=== PATIENT | female | born 1990 | race Caucasian/White ===

== ENCOUNTER → 2016-10-10 | Outpatient (CLI) | payer BC ==
[~2016-10-10] MED LIST: AMPH20TA2 PO; AMPH30CA3 PO; BUPR75TA20 PO; CIPR-255 PO; OXYC-57 PO
[2016-10-10 18:22] LABS: BASO % 0.1 %; BASO ABS # 0.01 K/uL (0-0.2); COMPLETE YES; EOS % 1.2 %; HEMATOCRIT 43.8 % (37-47); IG% 0.1 %; LYMPH % 27.5 %; LYMPH ABS # 2.04 K/uL (1.2-3.4); MEAN CORPUSCULAR HEMOGLOBIN 31.3 pg (25-34); MEAN CORPUSCULAR HGB CONC 33.3 g/dl (32-36); MEAN PLATELET VOLUME 10.4 fL (7.4-10.4); MONO % 5.7 %; NEUT % 65.4 %; PLATELET COUNT 244 K/uL (130-400); RED BLOOD COUNT 4.66 M/uL (4.2-5.4); WHITE BLOOD COUNT 7.41 K/uL (4.8-10.8)
[2016-10-10 18:35] LABS: URINE APPEARANCE CLEAR (CLEAR); URINE BILIRUBIN NEG (NEG); URINE COLOR DK YELLOW; URINE EPITHELIAL CELL AUTO >30 /lpf (0-5); URINE NITRITE NEG (NEG); URINE PH 5.5 (4.5-7.5); URINE SPECIFIC GRAVITY 1.021 (1.000-1.030); UROBILINOGEN NEG (NEG)
[2016-10-10 18:35] LABS: BLOOD UREA NITROGEN 10 mg/dl (7-18); BUN/CREATININE RATIO 10.7 (10-20); CARBON DIOXIDE 27 mmol/L (21-32); CHLORIDE 108 mmol/L (98-107); CREATININE 0.93 mg/dl (0.60-1.20); GLUCOSE 88 mg/dl (70-99); POTASSIUM 3.8 mmol/L (3.5-5.1); SODIUM 143 mmol/L (136-145)
[2016-10-10 18:42] LABS: MANUAL MICROSCOPIC REQUIRED? NO; REVIEW REQ? YES
[2016-10-10 18:58] LABS: URINE MUCUS PRESENT (NONE PRSENT)
== END | disposition home or self-care (01) ==
LOC: C.LABMFLN 09:06
PROVIDERS: ATTEND Urology
DX: N20.0 Calculus of kidney (principal)

== ENCOUNTER → 2016-10-19 | Day surgery (SDC) | payer BC ==
[2016-10-16 07:57] VITALS: Ht 154.9 cm; Wt 68.2 kg
[~2016-10-19] VITALS: Ht 154.9 cm; Wt 68.2 kg
[~2016-10-19] MED LIST changes: +ACETAMINOPHEN 325 MG TAB PO PRN; -AMPH30CA3 PO; +ATROPINE SULFATE 0.1 MG/ML 5ML SYR IV PRN; -BUPR75TA20 PO; +EpHEDrine SULFATE INJ 50 MG/ML AMP IV PRN; +FENTANYL CITRATE INJ 50 MCG/1 ML 2 ML VIAL IV PRN; +FENTANYL CITRATE INJ 50 MCG/1 ML 2 ML VIAL ONE; +HYDROCODONE/ACETAMOPHEN 5/325MG TAB PO PRN; +HYDROmorphone INJ 1 MG/ML SYR IV PRN; +LIDOCAINE HCL 2% 2 ML VIAL (20MG/ML) ONE; +MIDAZOLAM HCL 1 MG/ML 2ML VIAL ONE; +ONDANSETRON INJ 2 MG/ML 2 ML VIAL IV PRN; +ONDANSETRON INJ 2 MG/ML 2 ML VIAL ONE; +PROPOFOL IV EMULSION 10 MG/ML 20 ML VIAL IV ONE; +SODIUM CHLORIDE 0.9% 1000ML 1,000 ML IV SCH
[2016-10-19] MEDS: LACTATED RINGER'S 1000ML 1,000 ML IV SCH ×2 (07:58→10:50)
[2016-10-19] MEDS: CIPROFLOXACIN 400MG / D5W IV SCH (08:49)
--- NOTE | 2016-10-19 08:50 | History & Physical Bridge Note ---
H&P Re-Evaluation Bridge Note: I have examined the patient, reviewed the History & Physical and in the interval since the performance of the History & Physical I have noted the following changes of clinical significance: No changes noted KUB this AM has a significant amount of bowel gas making it difficult to definitively identify a renal stone. We will plan for a look under fluoroscopy prior to inducing anesthesia.
--- NOTE | 2016-10-19 10:20 | [facility] Post Operative Brief Note ---
Immediate Operative Summary Operative Date October 19, 2016. Pre-Operative Diagnosis Right renal calculi Post-Operative Diagnosis Same Procedure(s) Performed Right Extracorporeal Shock Wave Lithotripsy - Renal Surgeon Dr. Thomas Dynamometer Tester Engine Surgeon(s) None Estimated Blood Loss 0 mL Findings R renal stone- significant bowel gas made it somewhat hard to identify, but appeared to fragment well Specimens None Drains none Anesthesia gen Complication(s) None Disposition Recovery Room / PACU (stable)
--- NOTE | 2016-10-19 10:21 | Discharge Instructions-SurgCtr ---
Discharge Instructions Date of Service October 19, 2016. Visit Reason for Visit: Stones Discharge Discharge Diagnosis / Problem: stones Discharge Goals Goal(s): Decrease discomfort, Improve function, Increase independence, Improve disease control Medications Stopped Medications Name(s): No recent blood thinners Activity Recommendations Activity Limitations: resume your previous activity Lifting Limitations: none Exercise/Sports Limitations: none May Resume Sexual Activity: when tolerated Shower/Bathe: no limitations Driving or Machine Use: resume 1 day after discharge Anesthesia . Post Anesthesia Instructions: If you have had General Anesthesia or IV Sedation: * Do not drive today. * Resume driving when surgeon permits. * Do not make important decisions or sign legal documents today. * Call surgeon for: 1. Temperature elevations greater than 101 degrees F. 2. Uncontrollable pain. 3. Excessive bleeding. 4. Persistent nausea and vomiting. 5. Medication intolerance (nausea, vomiting or rash). * For nausea and vomiting use only clear liquids such as: tea, soda, bouillon until nausea subsides, then gradually increase diet as tolerated. * If you have any concerns or questions, call your surgeon's office. If physician is unavailable and it is an emergency, call 911 or go to the nearest emergency room. . Instructions / Follow-Up Instructions / Follow-Up Please keep your previously scheduled follow up appointment. Diet Recommendations Home Diet: no limitations, resume previous diet Procedures Procedures Performed: Right Extracorporeal Shock Wave Lithotripsy - Renal Pending Studies Studies pending at discharge: no Medical Emergencies . Who to Call and When: Medical Emergencies: If at any time you feel your situation is an emergency, please call 911 immediately. . Non-Emergent Contact Non-Emergency issues call your: Urologist Call Non-Emergent contact if: you have a fever, temperature is above 101.5, your pain is not controlled, your pain is worsening . . "Provider Documentation" section prepared by Wilmer Jeffery. .
--- NOTE | 2016-10-19 10:57 | Anesthesia Progress Nt - [facility] ---
Anesthesia Post Op Note Date & Time October 19, 2016 at 10:57 Vital Signs Pain Intensity: 0 Vital Signs Past 12 Hours Date Time Temp Pulse Resp B/P Pulse Ox O2 Delivery O2 Flow Rate FiO2 10/19/16 10:31 36.1 52 20 98/58 100 Mask 6 10/19/16 07:40 36.4 65 16 115/74 98 Room Air Notes Mental Status: alert / awake / arousable, participated in evaluation Pt Amnestic to Procedure: Yes Nausea / Vomiting: adequately controlled Pain: adequately controlled Airway Patency, RR, SpO2: stable & adequate BP & HR: stable & adequate Hydration State: stable & adequate Anesthetic Complications: no major complications apparent
[2016-10-19 11:21] VITALS: TEMP 36.2
[2016-10-19 11:41] VITALS: BP 125/73; PULSE 56; O2SAT 100
--- NOTE | 2016-10-19 12:31 | OPERATIVE REPORT ---
DATE OF OPERATION: 10/19/2016 PREOPERATIVE DIAGNOSIS: Right renal calculus. POSTOPERATIVE DIAGNOSIS: Right renal calculus. PROCEDURE PERFORMED: Right extracorporeal shockwave lithotripsy. ANESTHESIA: General. ESTIMATED BLOOD LOSS: Zero. URINE OUTPUT: Not recorded. SPECIMENS: None. DRAINS: None. COMPLICATIONS: None. DESCRIPTION OF THE PROCEDURE: Fransisca Gentile was identified in the preoperative holding area. Appropriate informed consents were reviewed and completed, and the patient was transported to the operating suite. Upon arrival, she received appropriate preoperative antibiotics in the form of ciprofloxacin and adequate general anesthesia. She was subsequently placed in supine position and the stone was localized under fluoroscopy and lithotripsy was commenced with a total of 2500 shocks delivered to the stone. At the conclusion of the case, the patient was extubated and taken to the PACU in stable condition. Further details can be found on the [facility] Information sheet. I attest to the content of the Intraoperative Record and any orders documented therein. Any exceptio ns are noted below.
== END | disposition home or self-care (01) ==
LOC: X.SURG 07:13
PROVIDERS: ATTEND Urology
DX: N20.0 Calculus of kidney (principal)

== ENCOUNTER → 2016-10-19 | Outpatient (CLI) | payer BC ==
[~2016-10-19] MED LIST changes: -ACETAMINOPHEN 325 MG TAB PO PRN; -ATROPINE SULFATE 0.1 MG/ML 5ML SYR IV PRN; -EpHEDrine SULFATE INJ 50 MG/ML AMP IV PRN; -FENTANYL CITRATE INJ 50 MCG/1 ML 2 ML VIAL IV PRN; -FENTANYL CITRATE INJ 50 MCG/1 ML 2 ML VIAL ONE; -HYDROCODONE/ACETAMOPHEN 5/325MG TAB PO PRN; -HYDROmorphone INJ 1 MG/ML SYR IV PRN; -LIDOCAINE HCL 2% 2 ML VIAL (20MG/ML) ONE; -MIDAZOLAM HCL 1 MG/ML 2ML VIAL ONE; -ONDANSETRON INJ 2 MG/ML 2 ML VIAL IV PRN; -ONDANSETRON INJ 2 MG/ML 2 ML VIAL ONE; -PROPOFOL IV EMULSION 10 MG/ML 20 ML VIAL IV ONE; -SODIUM CHLORIDE 0.9% 1000ML 1,000 ML IV SCH
--- NOTE | 2016-10-19 07:08 | DIAGNOSTIC IMAGING REPORT ---
KUB CLINICAL HISTORY: NEPHROLITHIASIS COMPARISON STUDY: No previous studies for comparison. FINDINGS: The renal shadows are largely obscured by overlying bowel gas and fecal material. No renal calculi are visualized. There is mild gaseous prominence of both large and small bowel loops. This may indicate an ileus. There is a moderate amount of right colonic stool. IMPRESSION: 1. Possible ileus 2. No renal calculi identified however the renal shadows are largely obscured. Electronically signed by: Tuan Cummins M.D. 10/19/2016 7:06 AM Dictated Date/Time: 10/19/2016 7:05 AM
== END | disposition home or self-care (01) ==
LOC: C.RAD 06:42
PROVIDERS: ATTEND Urology
DX: N20.0 Calculus of kidney (principal)

== ENCOUNTER → 2016-11-07 | Outpatient (CLI) | payer BC ==
[2016-11-07 17:39] LABS: URINE APPEARANCE CLEAR (CLEAR); URINE BILIRUBIN NEG (NEG); URINE COLOR YELLOW; URINE EPITHELIAL CELL AUTO 20-30 /lpf (0-5); URINE NITRITE NEG (NEG); URINE SPECIFIC GRAVITY 1.025 (1.000-1.030); UROBILINOGEN NEG (NEG)
[2016-11-07 17:47] LABS: BASO % 0.2 %; BASO ABS # 0.02 K/uL (0-0.2); COMPLETE YES; EOS % 0.1 %; IG% 0.2 %; LYMPH % 29.1 %; LYMPH ABS # 3.04 K/uL (1.2-3.4); MEAN CELL VOLUME 92.5 fL (80-100); MEAN CORPUSCULAR HGB CONC 33.5 g/dl (32-36); MEAN PLATELET VOLUME 10.1 fL (7.4-10.4); MONO % 6.3 %; NEUT % 64.1 %; PLATELET COUNT 265 K/uL (130-400); RED BLOOD COUNT 4.65 M/uL (4.2-5.4); WHITE BLOOD COUNT 10.45 K/uL (4.8-10.8)
[2016-11-07 17:47] LABS: MANUAL MICROSCOPIC REQUIRED? NO; REVIEW REQ? NO
[2016-11-07 18:18] LABS: BLOOD UREA NITROGEN 17 mg/dl (7-18); BUN/CREATININE RATIO 15.6 (10-20); CALCIUM 8.7 mg/dl (8.5-10.1); CARBON DIOXIDE 27 mmol/L (21-32); CHLORIDE 108 mmol/L (98-107); GLUCOSE 80 mg/dl (70-99); POTASSIUM 3.6 mmol/L (3.5-5.1); SODIUM 142 mmol/L (136-145)
== END | disposition home or self-care (01) ==
LOC: C.LABMFLN 10:28
PROVIDERS: ATTEND Urology
DX: N20.0 Calculus of kidney (principal)

== ENCOUNTER 2016-11-27 07:13 | Day surgery (SDC) | payer BC ==
[2016-11-01 14:47] VITALS: Ht 154.9 cm; Wt 68.2 kg
[~2016-11-27] VITALS: Ht 154.9 cm; Wt 68.2 kg
[~2016-11-27 07:13] MED LIST changes: -CIPR-255 PO; +CIPROFLOXACIN / D5W 400 MG IV SCH; +FENTANYL CITRATE INJ 50 MCG/1 ML 2 ML VIAL ONE; +LACTATED RINGER'S 1000ML 1,000 ML IV SCH; +MIDAZOLAM HCL 1 MG/ML 2ML VIAL ONE
[2016-11-27] MEDS ORDERED: ATROPINE SULFATE 0.1 MG/ML 5ML SYR IV PRN (07:15)
[2016-11-27] MEDS ORDERED: ONDANSETRON INJ 2 MG/ML 2 ML VIAL IV PRN (07:15)
[2016-11-27] MEDS ORDERED: HYDROmorphone INJ 1 MG/ML SYR IV PRN (07:15)
[2016-11-27] MEDS ORDERED: EpHEDrine SULFATE INJ 50 MG/ML AMP IV PRN (07:15)
[2016-11-27] MEDS ORDERED: FENTANYL CITRATE INJ 50 MCG/1 ML 2 ML VIAL IV PRN (07:15)
[2016-11-27] MEDS ORDERED: CONRAY 30% 150ML BOTTLE ONE (07:32)
[2016-11-27 07:47] VITALS: BP 132/72; PULSE 58; TEMP 36.9; O2SAT 99
--- NOTE | 2016-11-27 08:17 | History & Physical Bridge Note ---
H&P Re-Evaluation Bridge Note: I have examined the patient, reviewed the History & Physical and in the interval since the performance of the History & Physical I have noted the following changes of clinical significance: No changes noted
[2016-11-27] MEDS ORDERED: PROPOFOL IV EMULSION 10 MG/ML 20 ML VIAL IV ONE (08:36)
[2016-11-27] MEDS ORDERED: DEXAMETHASONE SOD INJ 4 MG/ML VIAL ONE (08:36)
[2016-11-27] MEDS ORDERED: LIDOCAINE HCL 2% 2 ML VIAL (20MG/ML) ONE (08:36)
[2016-11-27] MEDS ORDERED: ONDANSETRON INJ 2 MG/ML 2 ML VIAL ONE (08:36)
[2016-11-27] MEDS ORDERED: KETOROLAC TROMETHAMINE 30 MG/ML VIAL ONE (09:00)
--- NOTE | 2016-11-27 09:07 | [facility] Post Operative Brief Note ---
Immediate Operative Summary Operative Date Nov 27, 2016. Pre-Operative Diagnosis Right renal pelvic stone Post-Operative Diagnosis same Procedure(s) Performed Cystoscopy, Right Ureteroscopy, Laser Lithotripsy; Stent insertion ([id number]) Surgeon Dr. Yung Thomas Secure Software Assessor Surgeon(s) none Estimated Blood Loss 0ML Findings Right renal stone; healthy system overall Specimens none per surgeon Drains [id number] Anesthesia gen Complication(s) None Disposition Recovery Room / PACU (stable)
[2016-11-27] MEDS ORDERED: OXYC-57 PO (09:08)
[2016-11-27] MEDS ORDERED: CIPR-255 PO (09:09)
--- NOTE | 2016-11-27 09:09 | Discharge Instructions ---
Discharge Instructions Date of Service Nov 27, 2016. Admission Reason for Admission: Stones Discharge Discharge Diagnosis / Problem: Stones Discharge Goals Goal(s): Decrease discomfort, Improve function, Increase independence, Improve disease control Activity Recommendations Activity Limitations: resume your previous activity Lifting Limitations: none Exercise/Sports Limitations: none May Resume Sexual Activity: when tolerated Shower/Bathe: no limitations Driving or Machine Use: resume 1 day after discharge . Instructions / Follow-Up Instructions / Follow-Up Please keep your previously scheduled follow up appointment Discharge Diet Recommended Diet: Regular Diet Procedures Procedures Performed: Cystoscopy, Right Ureteroscopy, Laser Lithotripsy; Stent insertion ([id number]) Pending Studies Studies pending at discharge: no Medical Emergencies . Who to Call and When: Medical Emergencies: If at any time you feel your situation is an emergency, please call 911 immediately. . Non-Emergent Contact Non-Emergency issues call your: Urologist Call Non-Emergent contact if: you have a fever, temperature is above 101.5, your pain is not controlled, your pain is worsening . . "Provider Documentation" section prepared by Wilmer Jeffery. . VTE Core Measure Inpt VTE Proph given/why not?: Treatment not indicated
[2016-11-27] MEDS ORDERED: SODIUM CHLORIDE 0.9% 1000ML 1,000 ML IV SCH (09:10)
[2016-11-27] MEDS ORDERED: OXYCODONE/ACETAMINOPHEN 5-325 TAB PO PRN ×2 (09:15)
--- NOTE | 2016-11-27 09:40 | Anesthesiology Progress Note ---
Anesthesia Post Op Note Date & Time Nov 27, 2016 at 09:40 Vital Signs Pain Intensity: 0 Vital Signs Past 12 Hours Date Time Temp Pulse Resp B/P (MAP) Pulse Ox O2 Delivery O2 Flow Rate FiO2 11/27/16 09:25 55 10 122/86 100 Mask 10 11/27/16 09:15 50 17 104/67 100 Mask 10 11/27/16 09:09 36.2 51 17 98/63 100 Mask 10 11/27/16 07:47 36.9 58 18 132/72 (92) 99 Room Air Notes Mental Status: alert / awake / arousable, participated in evaluation Pt Amnestic to Procedure: Yes Nausea / Vomiting: adequately controlled Pain: adequately controlled Airway Patency, RR, SpO2: stable & adequate BP & HR: stable & adequate Hydration State: stable & adequate Anesthetic Complications: no major complications apparent
--- NOTE | 2016-11-27 09:47 | OPERATIVE REPORT ---
DATE OF OPERATION: 11/27/2016 PREOPERATIVE DIAGNOSIS: Right renal calculus. POSTOPERATIVE DIAGNOSIS: Right renal calculus. PROCEDURE PERFORMED: Cystoscopy, right ureteroscopy, right laser lithotripsy and ureteral stent placement, 6-Polish x24 cm. SURGEON: Dr. Yung Thomas. ANESTHESIA: General. ESTIMATED BLOOD LOSS: 0. URINE OUTPUT: Not recorded. SPECIMENS: None. COMPLICATIONS: None. OPERATION AND FINDINGS: DESCRIPTION OF THE PROCEDURE: Fransisca Gentile was identified in the preoperative holding area. Appropriate informed consents were reviewed and completed and the patient was transported to the operating suite. Upon arrival, she received appropriate preoperative antibiotics in the form of ciprofloxacin. Adequate general anesthesia was achieved and she was placed in dorsal lithotomy position where she was sterilely prepped and draped in standard fashion. I began the case by passing a 22-Polish cystoscope with 30 degree lens. Inspection of the bladder revealed some erythema, no visible pyuria, no bladder tumors. Ureteral orifices were in orthotopic position. I intubated the right ureteral orifice with a sensor wire and a 10-Polish double lumen catheter. Wire was advanced to the kidney without difficulty. Of note, there was an opacity visualized in this area consistent with the stone previously seen on CT scan. A second wire was advanced through the second port of the 10-Polish double lumen catheter and then double lumen catheter was advanced to the hilt. I left this in place for approximately 1 minute to gently dilate the ureter. I then withdrew the 10-Polish double lumen catheter and reserved one wire as safety wire using the other wire as a working wire to pass a ureteral access sheath to the level of the proximal ureter. This passed without difficulty under fluoroscopic guidance. I then passed a flexible ureteroscope via the ureteral access sheath. Full renoscopy was carried out. A large yellow crystalline appearing stone was visible within the renal pelvis, free floating. There were several small Ad's plaques and small fragments floating around the kidney as well. After this full inspection, I passed 400 micron laser fiber and began fragmenting the large stone in the renal pelvis. I broke this into pieces I deemed safe for spontaneous passage. I then proceeded to perform a complete detailed repeat renoscopy treating all large fragments as well as the Ad's plaques. Everything appeared to be treated adequately within the kidney and I performed a very careful exit ureteroscopy while simultaneously withdrawing the ureteral access sheath. There were no stones within the ureter and the ureter was trauma free from the access sheath passage. I concluded my case by passing a 6-Polish 24 cm double-J stent seeing a good curl in the renal pelvis as well as the bladder. The bladder was decompressed and the case was concluded. The patient was taken to the PACU in stable condition. I attest to the content of the Intraoperative Record and any orders documented therein. Any exceptions are noted below. MTDD
[2016-11-27 10:05] VITALS: BP 127/80; PULSE 57; TEMP 36.7; O2SAT 98
[2016-11-27 10:35] VITALS: BP 142/80; PULSE 59; O2SAT 98
[2016-11-27] MEDS ORDERED: NURSING VERBAL MED ORDER ONE (11:00)
[2016-11-27 11:05] VITALS: BP 125/76; PULSE 64; TEMP 36.7; O2SAT 98
[2016-11-27] MEDS ORDERED: TAMSULOSIN HCL 0.4 MG CAP PO STA (11:11)
[2016-11-27] MEDS ORDERED: TAMSULOSIN HCL 0.4 MG CAP PO SCH (21:00)
== END 2016-11-27 11:15 | disposition home or self-care (01) ==
LOC: C.ACU 07:13
PROVIDERS: ATTEND Urology
DX: N20.0 Calculus of kidney (principal)

== ENCOUNTER 2017-07-16 06:36 | Emergency (ER) | payer BC, OTHER ==
[~2017-07-16] VITALS: Ht 154.9 cm; Wt 58.8 kg
[~2017-07-16 06:36] MED LIST changes: +CIPR-255 PO; -CIPROFLOXACIN / D5W 400 MG IV SCH; -FENTANYL CITRATE INJ 50 MCG/1 ML 2 ML VIAL ONE; -LACTATED RINGER'S 1000ML 1,000 ML IV SCH; -MIDAZOLAM HCL 1 MG/ML 2ML VIAL ONE
[2017-07-16 06:38] VITALS: BP 146/91; PULSE 70; TEMP 36.8; O2SAT 98; Ht 154.9 cm; Wt 58.8 kg
[2017-07-16] MEDS ORDERED: IBUPROFEN 600 MG TAB PO STA (06:54)
[2017-07-16] MEDS ORDERED: CITA20TA9 PO (06:57)
[2017-07-16] MEDS ORDERED: NORGTAB36 PO (06:57)
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
== END 2017-07-16 07:37 | disposition home or self-care (01) ==
LOC: C.EDB 06:37
DX: S50.12XA Contusion of left forearm, initial encounter (principal); V89.9XXA Person injured in unspecified vehicle accident, initial encounter